=== PATIENT | male | born 1995 | race Caucasian/White ===

== ENCOUNTER 2020-02-22 21:41 | Inpatient (IN) | payer OTHER, SELFPAY ==
[2020-02-22 21:51] VITALS: BP 109/84; PULSE 121; RESP 16; TEMP 36.6; O2SAT 98; BMI 23.3
[2020-02-22 22:29] LABS: Basophils # 0.1 10^3/uL (0.0-0.1); Basophils % 0.8 %; Eosinophils % 0.4 %; Hematocrit 43.8 % (42.0-52.0); Hemoglobin 15.1 g/dL (11.7-16.6); Lymphocytes # 1.1 10^3/uL (0.8-4.8); Lymphocytes % 14.6 %; Mean Corpuscular HGB Conc 34.5 g/dL (30.0-36.0); Mean Corpuscular Hemoglobin 27.7 pg (28.0-34.0); Mean Corpuscular Volume 80.4 fL (80-94); Mean Platelet Volume 9.4 fL (7.4-10.4); Monocytes # 0.6 10^3/uL (0.2-0.9); Monocytes % 7.8 %; Neutrophils # 5.9 10^3/uL (1.8-7.7); Neutrophils % 76.3 %; Nucleated Red Blood Cells % 0 %; Platelet Count 259 10^3/cmm (130-400); Red Blood Count 5.45 10^6/uL (4.1-5.3); Red Cell Distribution Width 12.9 % (12.1-15.1); White Blood Count 7.7 10^3/uL (4.0-10.0)
[2020-02-22 22:43] LABS: Alanine Aminotransferase 20 U/L (0-41); Alkaline Phosphatase 116 IU/L (40-130); Anion Gap 18.4 (5-19); Aspartate Amino Transferase 20 U/L (0-40); Blood Urea Nitrogen 17 mg/dL (6-20); Calcium 10.5 mg/dL (8.5-10.5); Carbon Dioxide 22 mmol/L (22-29); Chloride 99 mmol/L (98-107); Globulin 3.1 g/dL (1.3-4.6); Glomerular Filtration Rate 92.6 mL/min (90-130); Glucose 104 mg/dL (65-115); Osmolality Calculated 279 mOsm/kg (285-295); Potassium 3.4 mmol/L (3.5-5.1); Sodium 136 mmol/L (136-145); Total Bilirubin 1.2 mg/dL (0.15-1.2); Total Protein 8.1 g/dL (6.6-8.7)
[2020-02-22 22:45] LABS: Acetaminophen < 5.0 ug/mL (10-30); Alcohol Level < 10 mg/dL (0-10); Salicylate < 0.3 mg/dL (3-10)
--- NOTE | 2020-02-22 23:07 | W.ED.PSYCH ---
HPI - Psych General: Chief Complaint: Psychiatric Symptoms Stated Complaint: mhe Time Seen by Provider: 02/22/20 21:59 History of Present Illness: MD complaint: suicidal ideation Onset (ago): day(s) Duration: constant History of same: No Relieving factors: none Context: significant life stressor Associated symptoms: Reports auditory hallucinations and suicidal ideation If self harm: admits thoughts of self harm and has plan Review of Systems Const: Denies: fever(s) or chills Eyes: Denies: change in vision or blurry vision ENMT: Denies: swelling of lips/tongue or sinus pain Card: Denies: chest pain, palpitations or irregular heart rhythm Resp: Denies: dyspnea, productive cough, non-productive cough or wheezing GI: Denies: abdominal pain, nausea or vomiting : Denies: difficulty urinating or hematuria Musc: Denies: joint redness or joint warmth Skin/Breast: Denies: rash or erythema Neuro: Denies: headache(s), dizziness, vertigo or confusion Psych: Reports: auditory hallucinations and suicidal ideation PFSH ED PFSH: Social History Smoking and tobacco status: never smoked Physical Exam Const: GENERAL APPEARANCE: well kempt and well developed ORIENTATION/CONSCIOUSNESS: Yes oriented to person, Yes oriented to place and Yes oriented to time HENMT: COMMON NORMALS: normocephalic, external ears normal and Normal external nose present HEAD & SCALP: normocephalic FACE & SINUS: normal facial exam NOSE: Normal external nose present and No nasal discharge present EXTERNAL EAR: Yes external ears normal MOUTH: tongue normal THROAT: posterior oropharynx normal; no peritonsillar mass Eye: COMMON NORMALS: Equal, round and reactive pupils present, EOMs intact bilaterally and conjunctivae normal EYELID: eyelids normal CONJUNCTIVA: Yes conjunctivae normal PUPIL: Yes Equal, round and reactive pupils present Neck/C-Spine: GENERAL: No tracheal deviation Chest: COMMONS NORMALS: normal inspection of the chest CHEST: No tenderness Resp: COMMON NORMALS: clear to auscultation bilaterally EFFORT & INSPECTION: No tachypneic, No respiratory distress, No retractions, No uses accessory muscles and No tracheal deviation AUSCULTATION: clear to auscultation bilaterally, no rhonchi, no wheezes and lung sounds not diminished Cardio: COMMON NORMALS: regular rate and regular rhythm RATE: regular rate RHYTHM: regular rhythm HEART SOUNDS: no murmurs PERIPHERAL PULSES: radial pulses present GI: INSPECTION: No abdominal distension AUSCULTATION: No Hyperactive bowel sounds present and No Hypoactive bowel sounds present PALPATION: No Guarding due to palpation present (GI) and No Rigid due to palpation PERCUSSION: no dullness to percussion and no tympanic to percussion Neuro: SENSORIUM/ORIENTATION: Yes oriented to person, Yes oriented to place and Yes oriented to time Psych: COMMON NORMALS: speech normal APPEARANCE: Yes well kempt ATTITUDE: Yes calm and Yes engaged ACTIVITY/MOTOR BEHAVIOR: Yes appropriate eye contact SPEECH: Yes normal speech MOOD & AFFECT: Yes Flat affect present THOUGHT CONTENT: Yes Suicidality present and Yes Hallucination(s) present auditory ATTENTION/CONCENTRATION: Yes attention grossly intact INSIGHT: Fair insight present (Psych) JUDGEMENT: Fair judgement present (Psych) Skin: COMMON NORMALS: no rashes or lesions noted GENERAL SKIN EXAM: no rashes or lesions noted MDM - Psych MDM Narrative: Medical decision making narrative: 24-year-old male with no prior history of psychiatric admission. He takes venlafaxine, mainly for anxiety. He reports recurring thoughts of suicide this evening, and his plan was to shoot himself in the head while sitting in a chair. He has access to guns in the home. He decided to come to the emergency department. He holds a picture of his 2 nephews, whom he says are keeping him alive. He admits to auditory hallucinations as well. He is medically stable. Psychiatry has agreed to admit. Lab Data: Labs: Lab Results 02/22/20 02/22/20 Range/Units 22:22 22:22 WBC 7.7 (4.0-10.0) 10^3/ uL RBC 5.45 H (4.1-5.3) 10^6/u L Hgb 15.1 (11.7-16.6) g/dL Hct 43.8 (42.0-52.0) % MCV 80.4 (80-94) fL MCH 27.7 L (28.0-34.0) pg MCHC 34.5 (30.0-36.0) g/dL RDW 12.9 (12.1-15.1) % Plt Count 259 (130-400) 10^3/c mm MPV 9.4 (7.4-10.4) fL Neut % (Auto) 76.3 % Lymph % (Auto) 14.6 % [place] % (Auto) 7.8 % Eos % (Auto) 0.4 % Baso % (Auto) 0.8 % Neut # (Auto) 5.9 (1.8-7.7) 10^3/u L Lymph # (Auto) 1.1 (0.8-4.8) 10^3/u L [place] # (Auto) 0.6 (0.2-0.9) 10^3/u L Eos # (Auto) 0.0 (0.0-0.8) 10^3/u L Baso # (Auto) 0.1 (0.0-0.1) 10^3/u L Nucleated RBC % (a uto) 0 % Nucleated RBCs # 0.0 /100WBC Sodium 136 (136-145) mmol/L Potassium 3.4 L (3.5-5.1) mmol/L Chloride 99 (98-107) mmol/L Carbon Dioxide 22 (22-29) mmol/L Anion Gap 18.4 (5-19) BUN 17 (6-20) mg/dL Creatinine 1.0 (0.7-1.2) mg/dL GFR Calculation 92.6 (90-130) mL/min Glucose 104 (65-115) mg/dL Calculated Osmolal ity 279 L (285-295) mOsm/k g Calcium 10.5 (8.5-10.5) mg/dL Total Bilirubin 1.2 (0.15-1.2) mg/dL AST 20 (0-40) U/L ALT 20 (0-41) U/L Alkaline Phosphata se 116 (40-130) IU/L Total Protein 8.1 (6.6-8.7) g/dL Albumin 5.0 (3.5-5.2) g/dL Globulin 3.1 (1.3-4.6) g/dL Salicylates < 0.3 L (3-10) mg/dL Acetaminophen < 5.0 L (10-30) ug/mL Ethyl Alcohol < 10 (0-10) mg/dL Discharge Plan Discharge Patient Disposition: Admitted As Inpatient Admit Provider: Aamir Shields Discharge Date/Time: 02/23/20 00:24 Coding Level of Care Code ED Analog Ic Design Architect for Chg Fwd
[2020-02-23 00:28] VITALS: BP 106/66; PULSE 102; RESP 18; TEMP 36.7; O2SAT 99
[2020-02-23 06:00] VITALS: BP 105/69; PULSE 110; RESP 18; TEMP 36.8; O2SAT 96
[2020-02-23] MEDS: venlafaxine ER (24HR) 37.5 mg Capsule PO ×2 (08:50→14:38)
--- NOTE | 2020-02-23 10:51 | P.HP_ITS ---
Providers/Chief Complaint Admitting Physician: Aamir Shields MD Primary Care Provider: Kenton Guerrero MD Chief Complaint: mhe HPI NPU History of Present Illness Oren Cast is a 24 year old male who presents today reporting that he has a history of mental health issues with anxiety going back to his childhood. He reports this is his first hospitalization, and that he first started getting treatment for his anxiety about six months ago. He reports that he tried different medications, initially did try Klonopin, and it really just snowed him, and then it changed to Effexor XR. It does not appear that his doctor is a mental health child custody evaluator, but a primary care doctor. He reports that he had been improving on the Effexor, but kind of maxed out on its effectiveness, identifying that he has only been on 37.5 mg this entire time. He reports that things got really frantic because one, he had been working and doing quite well. 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 On Monday, his mother had a stroke. He r eports he walked in and found her on the floor. He was able to call EMS but unfortunately, she is up in [place] in a unit being treated for stroke. He reports he held it together for a couple of days and he just was overwhelmed with the stress. He presented to the emergency room with reports of psychosis and suicidal thoughts. He presents this morning stating that he is feeling better and that he feels like he just needed to take a breath and maybe get some advice on what to do with his medication, and what to do about his anxiety. He denies being overwhelmingly depressed, and mostly reports that is his issue. He denied any current psychosis, any difficulty with social settings or things of that nature in relation to his anxiety. He denies any suicide attempts. PSYCHIATRIC HISTORY: As above. SUBSTANCE ABUSE HISTORY: He denies cigarette, alcohol, marijuana, or any other illicit drug use. He never had a rehab, never had a DUI. FAMILY HISTORY: He endorses mental health issues on his mother?s side and addiction issues on his mother?s side. He reports he has a sister who had suicide attempts. He reports he does not know enough about his father?s side to know if they have any issues. DEVELOPMENTAL HISTORY: He reports outside of maybe having his umbilical cord wrapped around his neck, that there were no issues with the or delivery. He learned to walk and talk and met his developmental milestones on time. He reports he was a good student, however he did get held back a year because his eyesight was so bad and they did not realize it until they got him glasses, and after being held back a year, he did fine. PSYCHOSOCIAL HISTORY: His mother and father were together when he was born. They when he was about 8 years old. He has an older sister. Neither of his parents have other children to his knowledge. He reports his childhood was good and there was no emotional, physical, or sexual abuse. He did graduate from high school but denied any additional training. He endorses that he would almost identify himself as asexual, but he does not have any real attraction towards either. He has never been in any kind of relationship of any sort. He has never been , he has never had children, he has never been in the . He reports he believes in God. His longest work history was about 2 ? years here at [employer] [facility] [place]. He lives in a trailer with his mom. LEGAL HISTORY: He has never had major legal problems or been in skilled nursing. MEDICAL HISTORY: Only significant for visual problems. His glasses are quite thick, but he does not know the diagnosis. Meds NPU Home Medications Medication Instructions Recorded Confirmed Last Taken Type venlafaxine 75 mg PO DAILY 02/22/20 02/23/20 02/22/20 History Allergies Allergy/AdvReac Type Severity Reaction Status Date / Time No Known Allergies Allergy Verified 02/22/20 21:55 PFS NPU PFSH: Social History Smoking and tobacco status: never smoked Mental Status Exam MSE Comments: This is a well-nourished, well-developed, white male, with javon quate dress, grooming, and eye contact. No abnormal movements. Cooperative with exam in no acute distress. Speech was slightly decreased rate and volume. Mood described as better; affect slightly subdued. Thought process, organized. Thought content: patient denied any suicidal or homicidal ideation, there were no delusions reported or noted, patient denied any auditory or visual hallucinations. Attention, concentration, and memory appear intact but were not formally tested. He is alert and oriented times three. Insight and judgment are fair. Vitals/I&O/Wt Last Vital Signs Temp 98.4 F 02/23/20 21:45 Pulse 90 02/23/20 21:45 Resp 12 02/23/20 21:45 BP 106/72 02/23/20 21:45 Pulse Ox 98 02/23/20 21:45 Weight last 48 hrs Weight 65.941 kg Weight 65.771 kg Data NPU : 02/22/20 22:22 02/22/20 22:22 A&P Assessment and plan (1) Anxiety: Status: Acute (2) Adjustment disorder with mixed disturbance of emotions and conduct: Status: Acute (3) Acute stress reaction: Status: Acute Additional A&P Information This is a 24 year old, white male, with a long history of anxiety with recent significant stressor of finding his mom passed out on the floor from a stroke. that she is at the hospital recovering from currently, who presents open to medication adjustments to treat his anxiety. Continue current medication except: Increase Effexor XR to 75 mg po qam. We will explore whether to consider increasing it to 150 either post hospitalization or in a few days. Encourage individual, group, and milieu therapy. Continue q 15-minute check for safety. Involuntary Hold Information 96 Hour Hold: 96 Hour Involuntary Admission: No Attestations NPU Medical Necessity Statement*: Inpatient hospitalization is medically necessary and the clinically appropriate intervention at this time. We will monitor medications and adjust as indicated. He will be in the hospital for over two midnights. Likely length of stay two to four days. Coding Level of Care Code Acute Elastic Attacher Chainstitch for Chelita Garrett Diagnoses Anxiety F41.9 Adjustment disorder with mixed disturbance of emotions and conduct F43.25 Acute stress reaction F43.0
[2020-02-23 14:00] VITALS: BP 113/74; PULSE 105; RESP 18; TEMP 36.7; O2SAT 98
[2020-02-23] MEDS: trazodone 50 mg Tablet PO (21:10)
[2020-02-23 21:45] VITALS: BP 106/72; PULSE 90; RESP 12; TEMP 36.9; O2SAT 98
[2020-02-24 06:00] VITALS: BP 96/66; PULSE 130; RESP 18; TEMP 36.9; O2SAT 97
[2020-02-24] MEDS: venlafaxine ER (24HR) 75 mg Capsule PO (09:49)
--- NOTE | 2020-02-24 13:59 | PM.NPN ---
Subjective NPU Subjective: Interval history: Oren presents today reporting that he is feeling better. He was filling out some paperwork so that he would have a psychiatrist instead of a regular primary doctor to look over his psychiatric concerns. He presents appearing much more optimistic about his situation though he is realistic about the challenges that exist for his mother. The social security specialist was able to talk to family, which is quite supportive, and they feel confident that they will be able to assist him in managing things in mom?s absence. We discussed the possibility of discharge in the morning. Mental Status Exam MSE Comments: This is a well-nourished, well-developed, white male, with adequate dress, grooming, and eye contact with fairly thick glasses that magnify his eyes making them quite prominent. No abnormal movements. Cooperative with exam in no acute distress. Speech was more normal rate and volume. Mood described as better; affect congruent. Thought process, organized. Thought content: patient denied any suicidal or homicidal ideation, there were no delusions reported or noted, patient denied any auditory or visual hallucinations. Attention, concentration, and memory appeared intact but were not formally tested. Alert and oriented times three. Insight and judgment are fair. Vitals/I&O/Wt Last Vital Signs Temp 98.2 F 02/24/20 22:00 Pulse 87 02/24/20 22:00 Resp 16 02/24/20 22:00 BP 110/71 02/24/20 22:00 Pulse Ox 98 02/24/20 22:00 Weight last 48 hrs Weight 65.941 kg Data NPU : 02/22/20 22:22 02/22/20 22:22 A&P Additional A&P Information (1) Anxiety: (2) Adjustment disorder with mixed disturbance of emotions and conduct: (3) Acute stress reaction: This is a 24 year old, white male, with a long history of anxiety with recent significant stressor of finding his mom passed out on the floor from a stroke. that she is at the hospital recovering from currently, who presents open to medication adjustments to treat his anxiety. Continue current medication except: We will explore whether to consider increasing Effexor XR to 150 mg either post hospitalization. Encourage individual, group, and milieu therapy. Continue q 15-minute check for safety. Involuntary Hold Information 96 Hour Hold: 96 Hour Involuntary Admission: No Attestations NPU Medical Necessity Statement*: Inpatient hospitalization is medically necessary and the clinically appropriate intervention at this time. We will monitor medications and adjust as indicated. He will be in the hospital for over two midnights. Likely length of stay 1-3 days. Coding Level of Care Code Acute Court Interpreter for Chelita Garrett
[2020-02-24 14:00] VITALS: BP 108/63; PULSE 78; RESP 18; TEMP 36.7; O2SAT 95
[2020-02-24] MEDS: trazodone 50 mg Tablet PO (21:18)
--- NOTE | 2020-02-24 21:18 | PC.NURSE ---
TRAZODONE PT REQUESTING SLEEP AID. ADMINISTERED TRAZODONE 50 MG PO FOR SLEEP. WILL MONITOR FOR MEDICATION EFFECTIVENESS.
[2020-02-24 22:00] VITALS: BP 110/71; PULSE 87; RESP 16; TEMP 36.8; O2SAT 98
[2020-02-25 06:00] VITALS: BP 98/64; PULSE 93; RESP 18; TEMP 36.8; O2SAT 99
[2020-02-25] MEDS: venlafaxine ER (24HR) 75 mg Capsule PO (09:26)
--- NOTE | 2020-02-25 14:12 | P.DS_ITS ---
Diagnoses at Discharge Discharge Diagnosis (1) Anxiety: Status: Acute (2) Adjustment disorder with mixed disturbance of emotions and conduct: Status: Acute (3) Acute stress reaction: Status: Acute Reason for Visit Reason for Visit: Reason For Visit: mhe Brief History: History of Present Illness Oren Cast is a 24 year old male who presents today reporting that he has a history of mental health issues with anxiety going back to his childhood. He reports this is his first hospitalization, and that he first started getting treatment for his anxiety about six months ago. He reports that he tried different medications, initially did try Klonopin, and it really just snowed him, and then it changed to Effexor XR. It does not appear that his doctor is a mental health clinical staff pharmacist, but a primary care doctor. He reports that he had been improving on the Effexor, but kind of maxed out on its effectiveness, i dentifying that he has only been on 37.5 mg this entire time. He reports that things got really frantic because one, he had been working and doing quite well. 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 On Monday, his mother had a stroke. He reports he walked in and found her on the floor. He was able to call EMS but unfortunately, she is up in [place] in a unit being treated for stroke. He reports he held it together for a couple of days and he just was overwhelmed with the stress. He presented to the emergency room with reports of psychosis and suicidal thoughts. He presents this morning stating that he is feeling better and that he feels like he just needed to take a breath and maybe get some advice on what to do with his medication, and what to do about his anxiety. He denies being overwhelmingly depressed, and mostly reports that is his issue. He denied any current psychosis, any difficulty with social settings or things of that nature in relation to his anxiety. He denies any suicide attempts. PSYCHIATRIC HISTORY: As above. SUBSTANCE ABUSE HISTORY: He denies cigarette, alcohol, marijuana, or any other illicit drug use. He never had a rehab, never had a DUI. FAMILY HISTORY: He endorses mental health issues on his mother?s side and addiction issues on his mother?s side. He reports he has a sister who had suicide attempts. He reports he does not know enough about his father?s side to know if they have any issues. DEVELOPMENTAL HISTORY: He reports outside of maybe having his umbilical cord wrapped around his neck, that there were no issues with the or delivery. He learned to walk and talk and met his developmental milestones on time. He reports he was a good student, however he did get held back a year because his eyesight was so bad and they did not realize it until they got him glasses, and after being held back a year, he did fine. PSYCHOSOCIAL HISTORY: His mother and father were together when he was born. They when he was about 8 years old. He has an older sister. Neither of his parents have other children to his knowledge. He reports his childhood was good and there was no em otional, physical, or sexual abuse. He did graduate from high school but denied any additional training. He endorses that he would almost identify himself as asexual, but he does not have any real attraction towards either. He has never been in any kind of relationship of any sort. He has never been , he has never had children, he has never been in the . He reports he believes in God. His longest work history was about 2 ? years here at [employer] [place] He lives in a trailer with his mom. LEGAL HISTORY: He has never had major legal problems or been in prison. MEDICAL HISTORY: Only significant for visual problems. His glasses are quite thick, but he does not know the diagnosis. Hospital Course Hospital Course Oren presented to the emergency room reporting anxiety and thoughts to kill himself. He was struggling with the fact that his mom had a recent stroke and he was feeling overwhelmed. He was admitted to the neuropsychiatric unit for definitive treatment of those issues. On the unit, he quickly acclimated to the individual, group, and milieu therapies provided. We increased his Effexor XR to 75 mg, and he showed significant improvement. During the hospitalization, the patient had routine laboratory studies which were within normal limits, except for a few outliers. Additionally, he had a general medical evaluation which was within normal limits and revealed no new acute processes. Discharge Summary At the time of discharge the patient denied all lethality, was absent psychosis, and mood and anxiety were well managed. The patient endorsed a plan to follow-up with outpatient services, as recommended. He was evaluated and deemed to be absent credible lethality, and had achieved the maximum benefit from an inpatient hospitalization, and so he was discharged. Involuntary Hold Information 96 Hour Hold: 96 Hour Involuntary Admission: No Mental Status Exam MSE Comments: This is a well-nourished, well-developed, white male, with adequate dress, grooming, and eye contact with fairly thick glasses that magnify his eyes making them quite prominent. No abnormal movements. Cooperative with exam in no acute distress. Speech was more normal rate and volume. Mood described as much better; affect congruent. Thought process, organized. Thought content: patient denied any suicidal or homicidal ideation, there were no delusions reported or noted, patient denied any auditory or visual hallucinations. Attention, concentration, and memory appeared intact but were not formally tested. Alert and oriented times three. Insight and judgment are fair. Discharge Data Vitals: Last Vital Signs Temp 98.3 F 02/25/20 06:00 Pulse 93 02/25/20 06:00 Resp 18 02/25/20 06:00 BP 98/64 02/25/20 06:00 Pulse Ox 99 02/25/20 06:00 Discharge Plan Discharge Patient Disposition: Home, Self-Care Condition: Stable Prescriptions: New venlafaxine 75 mg Capsule,Extended Release 24hr 75 mg PO DAILY 30 Days Qty: 30 RF: 1 Discontinued venlafaxine 37.5 mg Capsule,Extended Release 24hr 75 mg PO DAILY RF: 0 Discharge Orders: Discharge Order (Routine); Ordered 02/25/20 Ordered By: Aamir Shields [place]errals: [facility] [Outside] - 1-3 days (Your intake paperwork was submitted during your hospitalization. They will contact you to arrange a time for your phone assessment.) Discharge Diet: Regular Discharge Activity: Resume usual activity Patient Instructions: Venlafaxine (By mouth) Discharge Date/Time: 02/25/20 16:25 Discharge Attestations NPU Time Spent in Discharge Care*: less than 30 min Specific Discharge Activities: Specific discharge activities: educating patient, discussing with case loader operator/social workers/dc planners, documenting/other paperwork and evaluating patient/reviewing data Coding Level of Care Code Acute Mill Helper for Chg Fwd Diagnoses Anxiety F41.9 Adjustment disorder with mixed disturbance of emotions and conduct F43.25 Acute stress reaction F43.0
--- NOTE | 2020-02-25 15:04 | PC.SOCIAL ---
patient said he knows what to do for going to [facility] for outpatient services and he has a ride home. He does plan to take his medications.
[2020-02-25 15:17] VITALS: BP 98/64; PULSE 93; RESP 18; TEMP 36.8; O2SAT 99
== END 2020-02-25 16:25 | disposition home or self-care (01) | DRG 882 ==
LOC: ER 21:59 → NP 02-24 12:27
PROVIDERS: Emergency Medicine; Admitting Provider Psychiatry & Neurology Psychiatry; PCP Family Medicine; Visit Provider Psychiatry & Neurology Psychiatry
DX: F43.25 Adjustment disorder with mixed disturbance of emotions and conduct (principal); F41.9 Anxiety disorder, unspecified; F43.0 Acute stress reaction; Z81.8 Family history of other mental and behavioral disorders
CPT/HCPCS: 12345; 36415; 80053; 80307; 85025; 99284

== ENCOUNTER 2023-03-07 07:39 | Emergency (ER) | payer OTHER, SELFPAY ==
--- NOTE | 2023-03-07 07:46 | ED_ITS ---
HPI - Chest Pain General: Chief Complaint: Chest Pain Stated Complaint: chest pain Time Seen by Provider: 03/07/23 07:43 Source: patient and family Mode of arrival: ambulatory Limitations: no limitations History of Present Illness: Patient is a 27-year-old male who presents to ED today with a complaint of substernal chest pain that began yesterday evening around 4 PM. Patient states he was at rest when pain came on. He states he is very active and does cardio/runs twice a daily. He has never previously had any exertional chest pains. He states he does not feel short of breath or has any difficulty breathing. No cough or upper respiratory symptoms. He states since onset pain has been constant. He has not found any alleviating or worsening factors to his discomfort. No family history of young cardiac disease. No family history of sudden . MD complaint: chest pain Onset (ago): day(s) (yesterday) Timing of current episode: constant Prior episodes: No Onset: during rest Pain location: substernal Pain radiation: none Severity: moderate Quality: sharp Relieving factors: nothing Exacerbating factors: nothing Associated symptoms: Reports no associated symptoms; Deny abdominal pain, dyspnea, fever(s), nausea, palpitations, syncope or vomiting Treatment prior to arrival: none Risk Factors: Coronary artery disease risk factors: none Thoracic aortic dissection risk factors: none Review of Systems Const: Denies: fever(s), chills, body aches, fatigue or malaise Eyes: Denies: change in vision or blurry vision Card: Reports: chest pain; Denies: palpitations, irregular heart rhythm, edema, swelling of feet/ankles, lightheadedness, syncope, pre-syncope, dyspnea on exertion, orthopnea, leg pain with exertion or acrocyanosis Resp: Denies: dyspnea, productive cough, non-productive cough, wheezing, pain on inspiration, hemoptysis or chest congestion GI: Denies: abdominal pain, nausea or vomiting Musc: Denies: neck pain Neuro: Denies: headache(s) or dizziness PFSH ED PFSH: Social History Smoking and tobacco status: never smoked Physical Exam Const: COMMON NORMALS: no acute distress, average body habitus, patient oriented x3, no limitations, healthy appearing, alert and well nourished GENERAL APPEARANCE: cooperative ORIENTATION/CONSCIOUSNESS: Yes awake, Yes oriented to person, Yes oriented to place and Yes oriented to time OTHER: healthy/active appearing HENMT: COMMON NORMALS: normocephalic and atraumatic HEAD & SCALP: normal to inspection, normocephalic and atraumatic Neck/C-Spine: COMMON NORMALS: no JVD GENERAL: Yes normal visual inspection Chest: COMMONS NORMALS: normal inspection of the chest OTHER: TTP anterior chest wall Resp: COMMON NORMALS: normal respiratory effort and clear to auscultation bilaterally AUSCULTATION: clear to auscultation bilaterally Cardio: COMMON NORMALS: no JVD, regular rate and regular rhythm RATE: regular rate RHYTHM: regular rhythm GI: COMMON NORMALS: Normal to inspection, nondistended, normoactive bowel sounds present, Soft to palpation and non-tender PALPATION: Yes Soft to palpation Back/Pelvis: COMMON NORMALS: thoracic and lumbar spine normal to inspection, no thoracic nor lumbar tenderness and thoraco-lumbar ROM normal Extremity: COMMON NORMALS: normal to inspection GENERAL: Yes normal exam except as noted Neuro: MARIA VICTORIA COMA SCALE: document GCS findings [place] coma scale eye opening: Spontaneous [place] coma scale verbal response: Orientated Maria Victoria coma scale motor response: Obey commands Maria Victoria coma scale total score: 15 COMMON NORMALS: patient oriented x3 SENSORIUM/ORIENTATION: Yes alert, Yes oriented to person, Yes oriented to place and Yes oriented to time Skin: COMMON NORMALS: no rashes or lesions noted GENERAL SKIN EXAM: no rashes or lesions noted Course Vital Signs: Vital signs: Vital Signs Temperature 97.7 F 03/07/23 07:53 Pulse Rate 84 03/07/23 08:53 Respiratory Rate 15 03/07/23 08:53 Blood Pressure 114/91 03/07/23 08:53 Pulse Oximetry 96 03/07/23 08:53 Oxygen Delivery Me thod Room Air 03/07/23 08:53 MDM - Chest Pain Medical Decision Making Patient is a young healthy 27-year-old male here for substernal chest pain beginning yesterday. Chest pain is fairly reproducible on physical exam. His vital signs are stable. Blood work including troponin are unremarkable. CXR unremarkable. EKG showing no ischemic changes. He does have some mild hypokalemia at 3.1. He was given PO potassium prior to discharge. Return to ED precautions. Otherwise he can follow up with primary care at the end of the week/early next week if symptoms persist. Return to ED precautions given. Lab Data 03/07/23 09:05 03/07/23 09:05 Radiology Impressions Chest X-Ray 03/07/23 08:00 IMPRESSION: No acute findings. Laboratory Results WBC 7.2 10^3/uL (4.0-10.0) 03/07/23 09:05 RBC 5.48 10^6/uL (4.1-5.3) H 03/07/23 09:05 Hgb 15.0 g/dL (11.7-16.6) 03/07/23 09:05 Hct 44.9 % (42.0-52.0) 03/07/23 09:05 MCV 81.9 fl (80-94) 03/07/23 09:05 MCH 27.4 pg (28.0-34.0) L 03/07/23 09:05 MCHC 33.4 g/dL (30.0-36.0) 03/07/23 09:05 RDW 12.9 % (12.1-15.1) 03/07/23 09:05 Plt Count 244 10^3/cmm (130-400) 03/07/23 09:05 MPV 9.5 fL (7.4-10.4) 03/07/23 09:05 Neut % (Auto) 63.4 % 03/07/23 09:05 Lymph % (Auto) 25.9 % 03/07/23 09:05 [place] % (Auto) 5.4 % 03/07/23 09:05 Eos % (Auto) 4.2 % 03/07/23 09:05 Baso % (Auto) 1.0 % 03/07/23 09:05 Neut # (Auto) 4.58 10^3/uL (1.8-7.7) 03/07/23 09:05 Lymph # (Auto) 1.9 10^3/uL (0.8-4.8) 03/07/23 09:05 [place] # (Auto) 0.4 10^3/uL (0.2-0.9) 03/07/23 09:05 Eos # (Auto) 0.3 10^3/uL (0.0-0.8) 03/07/23 09:05 Baso # (Auto) 0.1 10^3/uL (0.0-0.1) 03/07/23 09:05 Nucleated RBC % (auto) 0 % 03/07/23 09:05 Nucleated RBCs # 0.0 /100WBC 03/07/23 09:05 Sodium 141 mmol/L (136-145) 03/07/23 09:05 Potassium 3.1 mmol/L (3.5-5.1) L 03/07/23 09:05 Chloride 104 mmol/L (98-107) 03/07/23 09:05 Carbon Dioxide 22 mmol/L (22-29) 03/07/23 09:05 Anion Gap 18.1 (5-19) 03/07/23 09:05 BUN 9 mg/dL (6-20) 03/07/23 09:05 Creatinine 1.0 mg/dL (0.7-1.2) 03/07/23 09:05 GFR Calculation 90.3 mL/min (90-130) 03/07/23 09:05 Glucose 86 mg/dL (65-115) 03/07/23 09:05 Calculated Osmolality 290 mOsm/kg (285-295) 03/07/23 09:05 Calcium 9.6 mg/dL (8.5-10.5) 03/07/23 09:05 Total Bilirubin 0.6 mg/dL (0.15-1.2) 03/07/23 09:05 AST 16 U/L (0-40) 03/07/23 09:05 ALT 14 U/L (0-41) 03/07/23 09:05 Alkaline Phosphatase 118 U/L (40-130) 03/07/23 09:05 Troponin T Gen 5 ng/L 6 ng/L (0-15) 03/07/23 09:05 Total Protein 7.4 g/dL (6.6-8.7) 03/07/23 09:05 Albumin 4.8 g/dL (3.5-5.2) 03/07/23 09:05 Globulin 2.6 g/dL (1.3-4.6) 03/07/23 09:05 Discharge Plan Discharge Patient Disposition: Home Clinical Impression: Anterior chest wall pain, Hypokalemia Condition: Stable Prescriptions: No Action venlafaxine 75 mg Capsule,Extended Release 24hr 75 mg PO DAILY 30 Days Qty: 30 1RF Discharge Orders: Discharge ED (Routine); Ordered 03/07/23 Ordered By: Christianne Tillman Referrals: Kenton Guerrero MD [Primary Care Provider] - Patient Instructions: Potassium Content of Foods List (ED), Chest Wall Pain (ED) Coding Level of Care Code ED Printed Circuit Board Drafter for Chelita Garrett
[2023-03-07 07:53] VITALS: BP 126/83; PULSE 85; TEMP 36.5; O2SAT 100; BMI 20.3
--- NOTE | 2023-03-07 07:58 | ECG_ITS ---
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 Measurements Intervals [place] Rate: 74 P: 40 WA: 148 QRS: 46 QRSD: 111 T: 35 QT: 394 QTc: 439 Interpretive Statements SINUS RHYTHM MODERATE INTRAVENTRICULAR CONDUCTION DELAY [110+ ms QRS DURATION] No previous ECG available for comparison Electronically Signed On 03-07-2023 16:51:10 CDT by Codi Holbrook M.D. [id number]
--- NOTE | 2023-03-07 08:00 | XRR_ITS ---
PROCEDURE INFORMATION: Exam: XR Chest Exam date and time: 03/07/2023 8:04 AM Age: 27 years old Clinical indication: Pain; Angina pectoris; Additional info: Chest pain TECHNIQUE: Imaging protocol: Radiologic exam of the chest. Views: 1 view. COMPARISON: No relevant prior studies available. FINDINGS: Lungs: Unremarkable. No consolidation. Pleural spaces: Unremarkable. No pleural effusion. No pneumothorax. Heart/Mediastinum: Unremarkable. No cardiomegaly. Bones/joints: Unremarkable. XR/XR chest 1V portable [id number] IMPRESSION: No acute findings.
[2023-03-07 08:49] VITALS: PULSE 90; RESP 18; O2SAT 100
[2023-03-07 08:53] VITALS: BP 114/91; PULSE 84; RESP 15; O2SAT 96
[2023-03-07 09:18] LABS: Basophils # 0.1 10^3/uL (0.0-0.1); Eosinophils # 0.3 10^3/uL (0.0-0.8); Eosinophils % 4.2 %; Hematocrit 44.9 % (42.0-52.0); Lymphocytes # 1.9 10^3/uL (0.8-4.8); Lymphocytes % 25.9 %; Mean Corpuscular HGB Conc 33.4 g/dL (30.0-36.0); Mean Corpuscular Hemoglobin 27.4 pg (28.0-34.0); Mean Corpuscular Volume 81.9 fl (80-94); Mean Platelet Volume 9.5 fL (7.4-10.4); Monocytes # 0.4 10^3/uL (0.2-0.9); Monocytes % 5.4 %; Neutrophils # 4.58 10^3/uL (1.8-7.7); Neutrophils % 63.4 %; Nucleated Red Blood Cells % 0 %; Platelet Count 244 10^3/cmm (130-400); Red Blood Count 5.48 10^6/uL (4.1-5.3); Red Cell Distribution Width 12.9 % (12.1-15.1); White Blood Count 7.2 10^3/uL (4.0-10.0)
[2023-03-07 09:37] LABS: Troponin T (5th) Once 6 ng/L (0-15)
[2023-03-07 09:39] LABS: Alanine Aminotransferase 14 U/L (0-41); Albumin Level 4.8 g/dL (3.5-5.2); Alkaline Phosphatase 118 U/L (40-130); Anion Gap 18.1 (5-19); Aspartate Amino Transferase 16 U/L (0-40); Blood Urea Nitrogen 9 mg/dL (6-20); Calcium 9.6 mg/dL (8.5-10.5); Carbon Dioxide 22 mmol/L (22-29); Chloride 104 mmol/L (98-107); Globulin 2.6 g/dL (1.3-4.6); Glomerular Filtration Rate 90.3 mL/min (90-130); Glucose 86 mg/dL (65-115); Osmolality Calculated 290 mOsm/kg (285-295); Potassium 3.1 mmol/L (3.5-5.1); Sodium 141 mmol/L (136-145); Total Bilirubin 0.6 mg/dL (0.15-1.2); Total Protein 7.4 g/dL (6.6-8.7)
[2023-03-07] MEDS: potassium chloride ER 20 mEq Tablet 40 MEQ PO (10:09)
[2023-03-07 10:13] VITALS: BP 114/91; PULSE 84; RESP 15; O2SAT 96
== END 2023-03-07 10:16 | disposition home or self-care (01) ==
PROVIDERS: Emergency Provider Physician Assistant; PCP Family Medicine
DX: R07.89 Other chest pain (principal); E87.6 Hypokalemia
CPT/HCPCS: 36415; 71045; 80053; 84484; 85025; 93005; 99285

== ENCOUNTER 2024-11-22 16:16 | Emergency (ER) | payer SELFPAY ==
[2024-11-22 16:30] VITALS: BP 108/72; PULSE 96; RESP 16; TEMP 36.6; O2SAT 97; BMI 23.0
--- NOTE | 2024-11-22 16:44 | USR_ITS ---
PROCEDURE INFORMATION: Exam: US Scrotum Exam date and time: 11/22/2024 4:55 PM Age: 29 years old Clinical indication: Scrotum pain; Additional info: Left sided testicular pain TECHNIQUE: Imaging protocol: Real-time ultrasound of the scrotum and contents with color Doppler and image documentation. COMPARISON: No relevant prior studies available. FINDINGS: Right testicle: Measures 5.1 x 3.1 x 2.4 cm. No mass. Normal color Doppler and arterial waveforms. No torsion. Left testicle: Measures 4.9 x 4 x 2.2 cm. No mass. Normal color Doppler and arterial waveforms. No torsion. Epididymides: Normal. Scrotum/soft tissues: Normal. No hydroceles. US/US scrotum [id number] IMPRESSION: There are no acute concerning abnormalities.
--- NOTE | 2024-11-22 16:44 | W.ED.MALEGU ---
Documented by User: JOÃO Calvillo 11/22/24 16:59 HPI - Male Genitourinary General: Chief complaint: Urogenital-Male Stated complaint: pain in L testicle(ref walk in) Time Seen by Provider: 11/22/24 16:40 Source: patient Mode of arrival: ambulatory Limitations: no limitations History of Present Illness: Patient is a 29-year-old male who presents to ED today with complaints of acute onset left testicular pain. Patient states he woke up this morning and he felt fine. He states he had taken a nap and woke up around 2pm this afternoon with severe onset left sided testicular pain. Initially rating it a 10/10 and felt very nauseous. Upon arrival here he states pain is a 4/10. Denies testicular/scrotal swelling or redness. He does feel like testicle is sitting different . MD Complaint: testicle pain Onset (ago): hour(s) Duration: constant Location: left testicle Severity: moderate Severity scale (1-10): 4 Relieving factors: none Exacerbating factors: none Associated symptoms: Reports nausea; Deny dysuria, hematuria, urinary incontinence or vomiting Related Data Previous Rx's ?Medication ?Instructions ?Recorded venlafaxine 75 mg capsule,extended 75 mg PO DAILY 30 days #30 caps 02/25/20 release 24 hr Allergies Allergy/AdvReac Type Severity Reaction Status Date / Time No Known Allergies Allergy Verified 03/07/23 07:58 Review of Systems Const: Denies: fever(s), chills, body aches, fatigue or malaise Card: Denies: chest pain Resp: Denies: dyspnea GI: Reports: nausea; Denies: abdominal pain or vomiting : Reports: testicular pain; Denies: flank pain, difficulty urinating, dysuria, urinary frequency, urinary urgency, urinary hesitancy, urinary incontinence, hematuria, genital lesions, penile discharge, testicular mass or scrotal swelling Musc: Denies: back pain Neuro: Denies: headache(s) or dizziness [facility] ED PFSH: Social History Smoking and tobacco/nicotine status: never used tobacco/nicotine Physical Exam Const: COMMON NORMALS: no acute distress, average body habitus, patient oriented x3, no limitations, healthy appearing, alert and well nourished GENERAL APPEARANCE: cooperative ORIENTATION/CONSCIOUSNESS: Yes awake, Yes oriented to person, Yes oriented to place and Yes oriented to time Resp: COMMON NORMALS: normal respiratory effort and clear to auscultation bilaterally AUSCULTATION: clear to auscultation bilaterally Cardio: COMMON NORMALS: regular rate and regular rhythm RATE: regular rate RHYTHM: regular rhythm GI: COMMON NORMALS: Normal to inspection, nondistended, normoactive bowel sounds present, Soft to palpation, non-tender, No hepatosplenomegaly present and no masses PALPATION: Yes Soft to palpation and Yes No hepatosplenomegaly present : COMMON NORMALS: Yes no CVA tenderness BLADDER/KIDNEY EXAM: Yes no CVA tenderness OTHER: exam deferred as patient was placed in a VF room with lack of privacy Back/Pelvis: COMMON NORMALS: no CVA tenderness Neuro: COMMON NORMALS: patient oriented x3 SENSORIUM/ORIENTATION: Yes alert, Yes oriented to person, Yes oriented to place and Yes oriented to time Course ED course: Based on history, have concern for testicular torsion. Patient was seated in vertical flow thus physical examination was initially deferred. I have contacted ultrasound who will perform stat imaging. Care will be transferred to LIEN Duran Vital Signs: Vital signs: Vital Signs Temperature 97.8 F 11/22/24 16:30 Pulse Rate 96 11/22/24 16:30 Respiratory Rate 16 11/22/24 16:30 Blood Pressure 108/72 11/22/24 16:30 Pulse Oximetry 97 11/22/24 16:30 Oxygen Delivery Me thod Room Air 11/22/24 16:30 MDM - Male Lab Data Radiology Impressions Scrotum Ultrasound 11/22/24 16:44 IMPRESSION: There are no acute concerning abnormalities. Laboratory Results Urine Color Yellow (Yellow) 11/22/24 17:55 Urine Appearance Clear (CLEAR) 11/22/24 17:55 Urine pH 5.5 (5-7) 11/22/24 17:55 Ur Specific [place] 1.016 (1.005-1.030) 11/22/24 17:55 Urine Protein Negative (Negative) 11/22/24 17:55 Urine Glucose (UA) Negative (Normal) 11/22/24 17:55 Urine Ketones Negative (Negative) 11/22/24 17:55 Urine Blood Negative (Negative) 11/22/24 17:55 Urine Nitrate Negative (Negative) 11/22/24 17:55 Urine Bilirubin Negative (Negative) 11/22/24 17:55 Urine Urobilinogen 1.0 mg/dL (Negative) 11/22/24 17:55 Ur Leukocyte Esterase Negative (Negative) 11/22/24 17:55 Amorphous Sediment Not Reportable 11/22/24 17:55 Discharge Plan Discharge Patient Disposition: Home Clinical Impression: Left testicular pain Condition: Stable Prescriptions: No Action venlafaxine 75 mg Capsule,Extended Release 24hr 75 mg PO DAILY 30 Days Qty: 30 1RF Discharge Orders: Discharge ED (Routine); Ordered 11/22/24 Ordered By: Faisal Gu Referrals: Kenton Guerrero MD [Primary Care Provider] - Patient Instructions: Testicle Pain (ED), Scrotal Pain (ED) Activity Restrictions/Additional Instructions: Follow-up with primary care as we discussed. If your condition worsens or does not improve over the next few days return for reevaluation. If you have any burning with urination, blood in your urine, high fevers, or vomiting please return as well. Drink plenty of fluids. Ibuprofen or Tylenol for pain. Print Language: Iranian Sign Out Sign Out Data: Patient Sign Out occurred on 11/22/24 at 17:07. Patient's care was discussed, and care was transferred from JOÃO Calvillo to JOÃO Mckeon. Coding Level of Care Code ED It Systems Analyst Consultant for [employer]g [employer] Documented by User: JOÃO Mckeon 11/22/24 18:55 HPI - Male Genitourinary General: Chief complaint: Urogenital-Male Stated complaint: pain in L testicle(ref walk in) Time Seen by Provider: 11/22/24 16:40 Related Data Previous Rx's ?Medication ?Instructions ?Recorded venlafaxine 75 mg capsule,extended 75 mg PO DAILY 30 days #30 caps 02/25/20 release 24 hr Allergies Allergy/AdvReac Type Severity Reaction Status Date / Time No Known Allergies Allergy Verified 03/07/23 07:58 PFS ED PFS: Social History Smoking and tobacco/nicotine status: never used tobacco/nicotine Course Vital Signs: Vital signs: Vital Signs Temperature 97.8 F 11/22/24 16:30 Pulse Rate 96 11/22/24 16:30 Respiratory Rate 16 11/22/24 16:30 Blood Pressure 108/72 11/22/24 16:30 Pulse Oximetry 97 11/22/24 16:30 Oxygen Delivery Me thod Room Air 11/22/24 16:30 MDM - Male Medical Decision Making This patient was handed over to me at shift change by JOÃO Calvillo. He had acute onset left testicular pain, no history of To cortisone, fevers, or urinary symptoms. He did think that his testicle was positioned differently. Ultimately exam of the testicular region unable to be attempted due to patient's placement in vertical flow. However patient did not report any swelling or redness. Ultrasound of the scrotum did not reveal any signs of epididymitis or testicular torsion. His urinalysis was also clear of any infection or blood that would indicate a potential kidney stone. Unsure ultimately of etiology of his pain, however this favoring at this time scrotal or testicular contusion. Told him to follow-up with primary care and monitor his condition closely and if pain worsens he is informed to come back. Also discussed specific symptoms that would warrant a return to the ED, of which she verbalized understanding. Lab Data Radiology Impressions Scrotum Ultrasound 11/22/24 16:44 IMPRESSION: There are no acute concerning abnormalities. Laboratory Results Urine Color Yellow (Yellow) 11/22/24 17:55 Urine Appearance Clear (CLEAR) 11/22/24 17:55 Urine pH 5.5 (5-7) 11/22/24 17:55 Ur Specific [place] 1.016 (1.005-1.030) 11/22/24 17:55 Urine Protein Negative (Negative) 11/22/24 17:55 Urine Glucose (UA) Negative (Normal) 11/22/24 17:55 Urine Ketones Negative (Negative) 11/22/24 17:55 Urine Blood Negative (Negative) 11/22/24 17:55 Urine Nitrate Negative (Negative) 11/22/24 17:55 Urine Bilirubin Negative (Negative) 11/22/24 17:55 Urine Urobilinogen 1.0 mg/dL (Negative) 11/22/24 17:55 Ur Leukocyte Esterase Negative (Negative) 11/22/24 17:55 Amorphous Sediment Not Reportable 11/22/24 17:55 All radiology interpretation(s) finalized by discharge Discharge Plan Discharge Patient Disposition: Home Clinical Impression: Left testicular pain Condition: Stable Prescriptions: No Action venlafaxine 75 mg Capsule,Extended Release 24hr 75 mg PO DAILY 30 Days Qty: 30 1RF Discharge Orders: Discharge ED (Routine); Ordered 11/22/24 Ordered By: Faisal Gu Referrals: Kenton Guerrero MD [Primary Care Provider] - Patient Instructions: Testicle Pain (ED), Scrotal Pain (ED) Activity Restrictions/Additional Instructions: Follow-up with primary care as we discussed. If your condition worsens or does not improve over the next few days return for reevaluation. If you have any burning with urination, blood in your urine, high fevers, or vomiting please return as well. Drink plenty of fluids. Ibuprofen or Tylenol for pain. Print Language: Iranian Sign Out Sign Out Data: Patient Sign Out occurred on 11/22/24 at 17:07. Patient's care was discussed, and care was transferred from JOÃO Calvillo to JOÃO Mckeon. Coding Level of Care Code ED It Systems Analyst Consultant for Chelita Garrett
[2024-11-22 18:38] LABS: Add Urine Microscopic? NO
[2024-11-22 18:40] LABS: Bilirubin Urine Negative (Negative); Blood Urine Negative (Negative); Glucose Urine UA Negative (Normal); Ketones Urine Negative (Negative); Leukocyte Esterase Urine Negative (Negative); Nitrate Urine Negative (Negative); Protein Urine Negative (Negative); Specific Gravity, Urine 1.016 (1.005-1.030); Urine Appearance Clear (CLEAR); Urine Color Yellow (Yellow); pH Urine 5.5 (5-7)
[2024-11-22 19:03] VITALS: BP 110/74; PULSE 89; RESP 16; O2SAT 98
[2024-11-22 19:15] LABS: Charge for UA Resulting for Rev
== END 2024-11-22 18:57 | disposition home or self-care (01) ==
PROVIDERS: Physician Assistant; Emergency Provider Physician Assistant; PCP Family Medicine
DX: N50.812 Left testicular pain (principal)
CPT/HCPCS: 76870; 81003; 99284